=== PATIENT | female | born 1980 | race Caucasian/White ===

== ENCOUNTER → 2017-11-12 | Outpatient (CLI) | payer OTHER, BC | LOC: FIMAGING 09:45 | PROVIDERS: ATTEND Internal Medicine Hematology & Oncology | DX: Z13.820 Encounter for screening for osteoporosis (principal); M85.89 Other specified disorders of bone density and structure, multiple sites; C50.212 Malignant neoplasm of upper-inner quadrant of left female breast ==

== ENCOUNTER → 2018-10-15 | Outpatient (CLI) | payer OTHER, BC ==
[~2018-10-15] MED LIST: GADOBUTROL 10 ML VIAL IVP ONE
== END ==
LOC: FIMAGING 11:31
PROVIDERS: ATTEND Internal Medicine Hematology & Oncology
DX: N64.59 Other signs and symptoms in breast (principal); Z90.13 Acquired absence of bilateral breasts and nipples
CPT/HCPCS: A9585; C8908